=== PATIENT | female | born 1935 | race Caucasian/White ===

== ENCOUNTER 2022-11-02 00:59 | Day surgery (SDC) | payer MEDICARE, OTHER, SELFPAY ==
[2022-10-26 11:28] VITALS: BMI 24.8
--- NOTE | 2022-10-26 11:37 | PC.NURSE ---
Report to the Outpatient Waiting Room, entrance under the green pavilion located off [facility], at time ___0900____ on date __11/02/22 . Planned Procedure Time: __1000 . Time changes happen often and if your time is changed the preop area will call you the afternoon before. - You and your visitor will be asked to self-screen and do not enter if you have any COVID symptoms. - A mask is optional within the hospital at this time. -MAY HAVE LIGHT BREAKFAST Take the following medications with a SIP of water the morning of surgery: REGULAR HOME MEDS DO NOT STOP ANY OF YOUR OTHER PRESCRIPTION MEDICATIONS PRIOR TO SURGERY ?EXCEPT THE FOLLOWING Medications to discontinue per physician Date to take last dose Please no make-up, nail welsh, hairspray, perfume, deodorant, or body powder the day of surgery. No jewelry (including any body piercings) or valuables the day of surgery, leave them at home. Please take a shower or bath the night before, or the morning of, surgery with an antibacterial soap. Wear comfortable, loose fitting clothing. Children are encouraged to wear pajamas. - Jewelry must be removed prior to entering the operating room. Rings and piercings that are not removed may be cut off. - The hospital will not accept responsibility for valuables. - Please leave all valuables, including medications, at home the day of surgery. If you are going home after surgery, a licensed cement truck driver must drive you home. - NO public transportation without another adult if you receive anesthesia. - We recommend that an adult stay with you for 24 hours following discharge. - We also recommend that you do not drive, make important decision, drink alcoholic beverages, or take any drugs that were not prescribed by your health care provider for at least 24 hours after your discharge time. For Pediatric surgeries, we recommend two adults accompany the child home. Follow any additional instructions given to you from your surgeon. If you or anyone in your household have experienced Covid symptoms in the past week, please notify your surgeon or the nurse liaison at the phone number below for possible testing. Telephone instructions given to _PT'S DAUGHTER - DENISE_and asked if any additional questions and then verbalized understanding. Patient advised to call surgeon office or pre surgery nurse liaison [phone] if any additional questions.
[2022-11-02] VITALS (10 sets, daily range): BP systolic 104–143; BP diastolic 48–68; PULSE 50–76; RESP 12–16; TEMP 36.1; O2SAT 100
--- NOTE | 2022-11-02 07:19 | WPDHPUPDATE1 ---
History and Physical Update Update Date/Time: 11/02/22 07:19 History and Physical has been reviewed, including an updated exam of the patient. There are NO changes in the patient's condition. Risks, benefits, and alternatives have been discussed and questions answered. Patient agrees to proceed with procedure.
--- NOTE | 2022-11-02 07:44 | W.PM.PROC2 ---
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 Surgeon Osmel Mccain MD Anesthesia Local Indications Prior bx. Findings No residual tumor. Description of Procedure The red, flakita site on the patient's left cheek prominence was identified and marked in the preop area. She was then rolled to the operating room where she was placed supine on the operating table. The entire face and left neck were prepped and draped in usual fashion. The patient was comfortable. The site was carefully marked for the estimated excision. This area was widely infiltrated with 1% lidocaine with epinephrine achieving adequate anesthesia and hemostasis. The site was incised around the periphery with a 15 blade and taken off the subcutaneous fat with scissors. The most superior aspect near the lower eyelid was marked with a suture for 12 o'clock. The tissue was sent for frozen section. The pathologist reports that there was no residual tumor. Of anticipating that we were able to close this wound on a 86-year-old face the wound margins were undermined 3 cm along the lateral margin proximally 2 cm on the medial margin. This allowed advancement and coaptation margins using 3-0 intradermal Vicryl. Once the pathology report was received we proceeded to close the skin with a running 5 0 nylon. The wound was closed by advancing laterally to medial primarily and this did not distort the lower eyelid. There was no bleeding at the end of the case. Antibiotic ointment was applied to the wound and the patient was discharged from the operating room in stable condition. No prescriptions are being sent home. Estimated Blood Loss 2 Drains No Packing No Pathology Yes Complications No immediate complications Condition Stable Disposition Same day
[2022-11-02] MEDS: BALANCED SALT SOLN OPHTH IRRIG 30 ML BTL EACH EYE (07:58)
[2022-11-02] MEDS: LIDO 1%/EPINEPHRINE 1:100,000 50 ML VIAL 10 ML INFILTRATE (08:12)
--- NOTE | 2022-11-02 08:32 | SUR.OPER ---
pathology report for frozen section received per telephone per surgeon 08:32.
[2022-11-02] MEDS: BACITRACIN OINTMENT 15 GM TUBE 1 APPLIC TOPICAL (08:42)
== END 2022-11-02 09:17 | disposition home or self-care (01) ==
PROVIDERS: PCP Nurse Practitioner Family; Visit Provider Plastic Surgery
PROC: (CPT 11643; principal; 2022-11-02 07:30)
DX: C44.329 Squamous cell carcinoma of skin of other parts of face (principal); E11.9 Type 2 diabetes mellitus without complications; I10 Essential (primary) hypertension; Z79.4 Long term (current) use of insulin; F17.210 Nicotine dependence, cigarettes, uncomplicated
CPT/HCPCS: 11643; 13132; 88305; 88331; A9270